=== PATIENT | female | born 1985 | race Caucasian/White ===

== ENCOUNTER 2016-12-26 20:37 | Emergency (ER) | payer MEDICAID | END 2016-12-26 22:30 | disposition home or self-care (01) | LOC: D.ER 20:37 | DX: M25.461 Effusion, right knee (principal); M25.561 Pain in right knee; M76.9 Unspecified enthesopathy, lower limb, excluding foot; F41.9 Anxiety disorder, unspecified; F32.9 Major depressive disorder, single episode, unspecified; F17.200 Nicotine dependence, unspecified, uncomplicated ==

== ENCOUNTER 2017-01-10 12:18 | Emergency (ER) | payer MEDICAID ==
[2017-01-10 13:59] LABS: HEMATOCRIT 38.9 % (36.0-48.0); HEMOGLOBIN 12.3 g/dL (12-16); MCHC 31.6 g/dL (31.0-37.0); MCV 91.7 fL (80.0-100.0); RBC 4.24 10x6/uL (4.00-5.40); RDW 15.1 % (11.5-14.5); WBC 6.6 10x3/uL (4.8-10.8)
[2017-01-10 14:02] LABS: PLATELET COUNT 269 10x3/uL (130-400)
[2017-01-10 14:47] LABS: EOSINOPHILS 4 % (0-7); LYMPHOCYTES 51 % (15-50); MONOCYTES 1 % (2-11); NEUTROPHILS 44 % (40-80); PLATELET ESTIMATE NORMAL
== END 2017-01-10 14:55 | disposition home or self-care (01) ==
LOC: D.ER 12:18
PROVIDERS: Nurse Practitioner Acute Care
DX: M25.461 Effusion, right knee (principal); F41.9 Anxiety disorder, unspecified; F32.9 Major depressive disorder, single episode, unspecified; F17.200 Nicotine dependence, unspecified, uncomplicated

== ENCOUNTER 2017-05-13 23:27 | Emergency (ER) | payer MEDICAID | END 2017-05-14 00:25 | disposition home or self-care (01) | LOC: D.ER 23:27 | DX: T14.8 Other injury of unspecified body region (principal); V43.52XA Car driver injured in collision with other type car in traffic accident, initial encounter; Y93.89 Activity, other specified; Y92.410 Unspecified street and highway as the place of occurrence of the external cause; F17.200 Nicotine dependence, unspecified, uncomplicated ==

== ENCOUNTER 2017-06-30 13:48 | Emergency (ER) | payer MEDICAID | END 2017-06-30 16:40 | disposition home or self-care (01) | LOC: D.ER 13:48 | DX: S82.144A Nondisplaced bicondylar fracture of right tibia, initial encounter for closed fracture (principal); V49.9XXA Car occupant (driver) (passenger) injured in unspecified traffic accident, initial encounter; Y93.89 Activity, other specified; Y92.410 Unspecified street and highway as the place of occurrence of the external cause; K04.7 Periapical abscess without sinus ==